=== PATIENT | female | born 1965 | race Native Hawaiian/Other Pacific Islander ===

== ENCOUNTER 2021-04-25 11:21 | Outpatient (CLI) | payer BC, OTHER ==
[~2021-04-25] VITALS: Ht 167.6 cm; Wt 88.5 kg
== END 2021-04-25 22:00 | disposition home or self-care (01) ==
LOC: INF 11:21
PROVIDERS: ATTEND Internal Medicine Endocrinology, Diabetes & Metabolism
DX: Z23 Encounter for immunization (principal); U07.1 COVID-19
CPT/HCPCS: 96365; M0244